=== PATIENT | female | born 1995 | race Caucasian/White ===

== ENCOUNTER 2017-07-09 14:08 | Outpatient (CLI) | payer MEDICAID ==
[2017-07-09 14:21] LABS: BASOPHILS % 0.5 (0.0-1.5); EOSINOPHILS % 0.9 % (0.0-6.8); MEAN CORPUSCULAR HEMOGLOBIN 29.1 pg (28.0-34.0); MEAN CORPUSCULAR VOLUME 88.9 fl (80.0-100.0); MONOCYTES % 3.4 % (0.0-11.0)
[2017-07-09 14:54] LABS: eGFR (African) > 60; eGFR (Non-African) > 60
== END 2017-07-09 14:15 ==
LOC: LAB 14:08
PROVIDERS: ATTEND Physician Assistant
DX: Z00.00 Encounter for general adult medical examination without abnormal findings (principal)
CPT/HCPCS: 36415; 80053; 84443; 85025